=== PATIENT | female | born 1950 | race Caucasian/White ===

== ENCOUNTER 2018-08-26 06:15 | Day surgery (SDC) ==
--- NOTE | 2018-08-12 08:16 | EKG Report ---
Test Performed on : 08/12/2018 08:01:55 AM Test Reason : PAT Blood Pressure : / mmHG Vent. Rate : 073 BPM Atrial Rate : 073 BPM P-R Int : 162 ms QRS Dur : 084 ms QT Int : 406 ms P-R-T Axes : 070 059 033 degrees QTc Int : 447 ms Sinus rhythm. with premature atrial complexes. Otherwise normal ECG No previous ECGs available Confirmed by Barrie BARRON, Yasmany Santiago ([id number]) on 08/12/2018 10:24:06 AM
[2018-08-12 08:58] LABS: URINE SOURCE CLEAN CATCH
[2018-08-12 09:03] LABS: BASO% 0.5 % (0.0-0.8); EOS% 3.6 % (0.0-10.0); HEMATOCRIT 42.1 % (37.0-47.0); HEMOGLOBIN 13.5 g/dL (12.0-16.0); LYMPH# 2.12 X1000 (1.2-3.4); MCH 29.6 PG (27-31); MCHC 32.1 g/dL (33-37); MCV 92.3 FL (81-99); MONO# 0.58 X1000 (0.11-0.59); MONO% 7.9 % (1.7-9.3); MPV 10.4 FL (7.4-10.4); NEUT# 4.31 X1000 (1.4-6.5); PLT 309 X1000 (130-400); RBC 4.56 XMIL (4.2-5.4); RDW 13.2 % (11.5-14.5); WBC 7.31 X1000 (4.8-10.8)
[2018-08-12 09:04] LABS: BASO# 0.04 X1000 (0.0-0.2); EOS# 0.26 X1000 (0.0-0.7)
[2018-08-12 09:12] LABS: BILIRUBIN URINE NEGATIVE (NEGATIVE); BLOOD URINE NEGATIVE (NEGATIVE); COLOR YELLOW; GLUCOSE URINE NEGATIVE (NEGATIVE); KETONE URINE NEGATIVE (NEGATIVE); LEUKOCYTES URINE NEGATIVE (NEGATIVE); NITRITE URINE NEGATIVE (NEGATIVE); PH URINE 7.5; PROTEIN URINE NEGATIVE (NEGATIVE); TURBIDITY URINE HAZY (CLEAR); UROBILINOGEN URINE NORMAL (NORMAL)
[2018-08-12 09:14] LABS: UR EPITHELIAL CELLS <10 /HPF (<10); URINE BACTERIA NEGATIVE /HPF; URINE RBC <10 /HPF (<10); URINE WBC <10 /HPF (<10)
[2018-08-12 09:16] LABS: INR 0.92; PROTIME 13.2 Seconds (11.0-16.0)
[2018-08-12 09:17] LABS: PTT 29.4 Seconds (22.3-41.8)
[2018-08-12 09:29] LABS: AGAP 10; BUN 18 mg/dL (8-22); CALCIUM 8.8 mg/dL (8.8-10.2); CHLORIDE 107 mmol/L (98-107); COSMO 285; CREATININE 0.8 mg/dL (0.5-0.9); ESTIMATED GFR > 60; GLUCOSE 99 mg/dL (70-104); SODIUM 142 mmol/L (136-145); TCO2 25 mmol/L (25-35)
[2018-08-26] MEDS ORDERED: REGLAN ONE (06:32)
[2018-08-26] MEDS ORDERED: COLACE ONE (06:32)
[2018-08-26] MEDS ORDERED: CELEBREX ONE (06:32)
[2018-08-26] MEDS ORDERED: LR 1,000 ML ONE (06:32)
[2018-08-26] MEDS ORDERED: KEFZOL 1 GM/D5W 2 GM/100 ML IVPB ONE (06:32)
[2018-08-26] MEDS ORDERED: LYRICA ONE (06:32)
[2018-08-26] MEDS ORDERED: PEPCID ONE (06:32)
[2018-08-26] MEDS ORDERED: XYLOCAINE-MPF 2% ONE (06:55)
[2018-08-26] MEDS ORDERED: ROBINUL ONE (06:55)
[2018-08-26] MEDS ORDERED: DECADRON ONE (06:56)
[2018-08-26] MEDS ORDERED: FENTANYL ONE (06:59)
[2018-08-26] MEDS ORDERED: DIPRIVAN 1% 500 MG/50 ML BOTTLE ONE (07:04)
[2018-08-26] MEDS ORDERED: MARCAINE 0.25% PF/EPI 1:200,000 ONE (07:34)
[2018-08-26] MEDS ORDERED: VANCOMYCIN ONE (07:34)
[2018-08-26] MEDS ORDERED: DURAMORPH ONE (07:34)
[2018-08-26] MEDS ORDERED: TORADOL ONE (07:34)
[2018-08-26] MEDS ORDERED: SODIUM CHLORIDE 0.9% ONE (07:34)
[2018-08-26] MEDS ORDERED: EXPAREL 1.3% ONE (07:35)
[2018-08-26] MEDS ORDERED: NEOSPORIN G.U. IRRIGANT ONE (07:35)
[2018-08-26] MEDS ORDERED: OFIRMEV 1000 MG/ISOTONIC SOLN 1,000 MG/100 ML BOTTLE ONE (08:51)
[2018-08-26] MEDS: CYKLOKAPRON 1,000 MG/NS 2,000 MG/200 ML IVPB ONE ×2 (08:55→10:40)
[2018-08-26] MEDS ORDERED: ZOFRAN ONE (08:57)
[2018-08-26] MEDS ORDERED: EPHEDRINE ONE (09:06)
[2018-08-26] MEDS ORDERED: SODIUM CHLORIDE 0.9% 10 ML ONE (09:06)
[2018-08-26] MEDS ORDERED: DIPRIVAN 1% ONE (09:28)
[2018-08-26 09:36] LABS: URINE SOURCE CATH
[2018-08-26 09:45] LABS: BILIRUBIN URINE NEGATIVE (NEGATIVE); BLOOD URINE NEGATIVE (NEGATIVE); COLOR YELLOW; GLUCOSE URINE NEGATIVE (NEGATIVE); KETONE URINE NEGATIVE (NEGATIVE); LEUKOCYTES URINE NEGATIVE (NEGATIVE); NITRITE URINE NEGATIVE (NEGATIVE); PROTEIN URINE NEGATIVE (NEGATIVE); SP GRAVITY URINE 1.011; TURBIDITY URINE CLEAR (CLEAR); UROBILINOGEN URINE NORMAL (NORMAL)
[2018-08-26 09:47] LABS: UR EPITHELIAL CELLS <10 /HPF (<10); URINE BACTERIA NEGATIVE /HPF; URINE RBC <10 /HPF (<10); URINE WBC <10 /HPF (<10)
[2018-08-26] MEDS ORDERED: NS 1,000 ML ONE (11:02)
[2018-08-26] MEDS ORDERED: ZOFRAN PO PRN (11:45)
[2018-08-26] MEDS ORDERED: OXY IR PO PRN (11:45)
[2018-08-26] MEDS ORDERED: MORPHINE IV PRN ×3 (11:45)
[2018-08-26] MEDS ORDERED: OXY IR ONE (11:54)
--- NOTE | 2018-08-26 12:14 | Diag Imaging Result Doc PS360 ---
EXAM: KNEE 1-2 VIEWS-RIGHT HISTORY: post op total knee TECHNIQUE: Right knee, two views COMPARISON: None. FINDINGS: There has been orthopedic replacement of the right knee. There are anterior skin tani and a superior surgical drain. No fracture. IMPRESSION: Good alignment to the femoral and tibial components following orthopedic replacement of the right knee. Electronically signed by Joe Santoyo 08/26/2018 12:11 PM
[2018-08-26] MEDS: NS 1,000 ML IV SCH (13:36)
--- NOTE | 2018-08-26 16:07 | OPERATIVE NOTE ---
PROCEDURE DATE: 08/26/2018 PREOPERATIVE DIAGNOSIS: Degenerative osteoarthritis of the right knee. POSTOPERATIVE DIAGNOSIS: Degenerative osteoarthritis of the right knee. PROCEDURE: Right total knee arthroplasty with DePuy Attune size 5 posterior stabilized femur, size 6 tibial tray, 7 mm rotating platform tibial insert, and a 35 mm medialized anatomic patella. SURGEONS: Leland Lan. ORE SAMPLER: JOSE Dooley. SECOND HAIR COLORIST: Graeth Huang RN. ANESTHESIA: Spinal. IV FLUIDS: 2000 mL lactated Ringer. ESTIMATED BLOOD LOSS: 20 mL. TOURNIQUET TIME: 105 minutes at 350 mm Hg. COMPLICATIONS: None. INDICATION: The patient is a pleasant, 67-year-old female with chronic history of worsening pain and discomfort of the right knee. She continues with pain and discomfort despite appropriate nonoperative treatment. X-rays revealed degenerative arthritis. Recommendation to proceed with right total knee arthroplasty was offered. Risks and benefits of surgery were explained, including the risks of anesthesia, , bleeding, infection, failure to relive pain, postoperative stiffness nerve injury, blood clots, and other imponderables. All questions answered. The patient wished to surgery. DESCRIPTION OF PROCEDURE: Patient was taken to the operating room and placed supine on the operating table and underwent spinal anesthesia. After adequate anesthesia was obtained she was placed supine on the operating table. The right lower extremity was subsequently prepped and draped in usual sterile fashion. Esmarch was used to exsanguinate the right lower extremity. Tourniquet was inflated to 350 mm Hg. A standard anterior incision made with skin knife. Medial and skin envelopes developed. Standard medial parapatellar arthrotomy was then performed. Patella fat pad was excised. The retractor was then placed. Approximately 1 cm anterior to the PCL insertion, starting reamer was passed. Intramedullary guide with a distal femoral cutting block was pinned in position. Distal femoral cut was then performed in standard fashion. A sizing block was placed and measured size 5. Corresponding pins were placed. Anterior, posterior, and chamfer cuts were then made. Attention then turned to the proximal tibia where using the extramedullary guide, the proximal tibia cutting block was pinned in position. Had good alignment confirmed with the alignment layo. The proximal tibia was then resected. Medial and lateral menisci were excised. A curved osteotome was used to remove the posterior osteophytes off the distal femur. A spacer block was placed and had good soft tissue balancing both flexion and extension. After this had been performed attention was turned back to the proximal tibia where a size 6 tibial tray appeared to be correct size. It was pinned in position. This followed by a central reamer and a fin punch. After this had been performed, the box cutting guide was placed on the distal femur. A box cut was performed. A trial femoral component was then placed and 2 lug holes were drilled. A trial tibial insert was then placed and good soft tissue balance in both flexion extension. The patella was everted and resected in standard fashion. The 3 lug holes size 35 appeared be correct size. The holes were drilled. A trial component patella component was then placed and had good patellofemoral tracking. The trial components were then removed. Copious irrigation was then performed with antibiotic pulsatile lavage while vancomycin was mixed with cement on the back table. Sequential cementing was then performed first with the tibial tray and excess cement with a [place] followed by the femoral component and excess cement was removed with a [place] followed by trial tibial insert in full extension. Axial load was maintained while cement cured. The patella component was placed in full and patella clamp was placed. Excess cement was removed with a [place]. Exparel was placed in deep soft tissue, as well as the subcutaneous tissue. After cement had cured peripheral cement was removed small osteotome, the 7 mm rotating platform tibial insert appeared to correct size. The trial insert was removed. Exparel was placed deep posterior capsule. The wound was copiously irrigated once again. A 7 mm rotating platform tibial insert was then placed and good soft tissue balancing both flexion extension and good patellofemoral tracking. A 1/8 Hemovac drain was placed was not sewn in. Copious irrigation was then performed once again with antibiotic pulsatile lavage. #1 Vicryl was used to repair the arthrotomy followed by 2-0 Vicryl to repair the subcutaneous tissue, and skin tani. Adaptic, sterile 4 x 4, Webril, cryo unit applied left lower and Enmanuel wrap applied to the right lower extremity. The patient tolerated the procedure well. Transferred to recovery room in stable condition. cc: Kwame Flores MD
[2018-08-26] MEDS: KEFZOL 1 GM/D5W 1 GM/50 ML IVPB IV SCH (17:51)
[2018-08-27] MEDS: KEFZOL 1 GM/D5W 1 GM/50 ML IVPB IV SCH (01:07)
[2018-08-27] MEDS: NS 1,000 ML IV SCH ×2 (04:21→14:36)
[2018-08-27] MEDS ORDERED: XARELTO PO SCH (06:00)
[2018-08-27] MEDS: OXY IR PO PRN ×3 (06:25→13:31)
[2018-08-27 06:26] LABS: HEMATOCRIT 35.4 % (37.0-47.0); HEMOGLOBIN 11.1 g/dL (12.0-16.0)
[2018-08-27 06:44] LABS: AGAP 8; BUN 11 mg/dL (8-22); CALCIUM 8.4 mg/dL (8.8-10.2); CHLORIDE 107 mmol/L (98-107); COSMO 283; CREATININE 0.7 mg/dL (0.5-0.9); ESTIMATED GFR > 60; GLUCOSE 100 mg/dL (70-104); POTASSIUM 4.3 mmol/L (3.5-5.1); SODIUM 142 mmol/L (136-145); TCO2 27 mmol/L (25-35)
[2018-08-27] MEDS ORDERED: SYNTHROID PO SCH (07:00)
[2018-08-27] MEDS ORDERED: LOFIBRA PO SCH (09:00)
[2018-08-27] MEDS ORDERED: PERIDEX MT SCH (09:00)
--- NOTE | 2018-08-27 10:48 | ORTHOPAEDICS PROGRESS NOTE ---
DATE: 08/27/2018 SUBJECTIVE: The patient is a pleasant, 68-year-old female who is one day status post right total knee arthroplasty. She is currently resting comfortably. PHYSICAL EXAMINATION: On the patient's right lower extremity her dressing is intact. Her calf is soft. She is neurovascularly intact distally, has active dorsiflexion and plantar flexion. LABORATORY DATA: Her labs are pending. IMPRESSION: Postoperative day #1 status post right total knee arthroplasty. PLAN: At this point, will change her dressing, discontinue her drain and [place]. We will plan on discharging home later today if she is mobilizing well with physical therapy. We will arrange for outpatient physical therapy. cc: Kwame Flores MD
[2018-08-27 15:09] VITALS: BP 125/57
[2018-08-27] MEDS ORDERED: ZOCOR PO SCH (21:00)
== END 2018-08-27 16:47 | disposition home or self-care (01) ==
LOC: OR 06:15 → 4N 06:15 → OR 08-27 16:47
PROVIDERS: ATTEND Orthopaedic Surgery Adult Reconstructive Orthopaedic Surgery
CPT/HCPCS: 73560; 80048; 81001; 85014; 85018; 85025; 85610; 85730; 86850; 86900; 86901; 88305; 88311; 93005; 93010; 94760; 94799; 97110; 97116; 97162; 97530; A9270; C9290; J0131; J0690; J1100; J1885; J2274; J2275; J2405; J3010; J3370; J7030; J7120; Q9974; S0020